=== PATIENT | female | born 1960 | race Caucasian/White ===

== ENCOUNTER 2020-12-17 17:44 | Inpatient (IN) | payer OTHER, MEDICAID, SELFPAY ==
[2020-12-17] VITALS (15 sets, daily range): BP systolic 157–188; BP diastolic 86–113; PULSE 70–85; RESP 13–20; TEMP 36.1–37.1; O2SAT 96–100; BMI 25.9
--- NOTE | 2020-12-17 18:12 | ED_ITS ---
HPI - Female Genitourinary General Chief complaint: Vaginal Bleeding Stated complaint: Needs Transfusion, Sent From Dr Caballero Time Seen by Provider: 12/17/20 17:59 Source: patient Mode of arrival: Ambulatory Limitations: no limitations History of Present Illness HPI Narrative: 60-year-old female daily smoker presents with at the request of Gynecology. She has been having bloating, pelvic pain and episodes of heavy vaginal bleeding for the past few weeks. She has had an ultrasound which demonstrates a large fibroid and was sent to gynecology for referral today. Upon hearing the story she was evaluated and sent to the emergency department for workup presuming the patient to be anemic. She has been a bit fatigued and short of breath and a few weeks ago had a hemoglobin of 7. She does not take any blood thinners. She denies any runny nose, sore throat or cough. She denies any chest pain. MD Complaint: vaginal bleeding Onset (ago): week(s) Location: suprapubic Severity: moderate Quality: Aching and Cramping Duration: constant Relieving factors: none Exacerbating factors: movement Vaginal discharge: dark blood Patient : No Related Data Home Medications Medication Instructions Recorded Confirmed diphenhydramine HCl 25 mg capsule 25 mg PO BID PRN 12/17/20 12/17/20 gabapentin 600 mg tablet 300 mg PO TID tab 12/17/20 12/17/20 ibuprofen 200 mg capsule 200 mg PO Q6H PRN 12/17/20 12/17/20 Allergies Allergy/AdvReac Type Severity Reaction Status Date / Time nalbuphine [From NUBAIN] Allergy Severe CHEST Verified 12/17/20 17:52 TIGHTING/SOB Review of Systems Constitutional Constitutional: Denies chills, Denies fatigue, Denies fever(s), Denies frequent falls, Denies lethargy and Denies weakness Eyes Eyes: Denies change in vision, Denies eye discharge, Denies irritation and Denies loss of vision ENT Ears, Nose, Mouth, and Throat: Denies change in voice, Denies dizziness, Denies neck pain, Denies sore throat and Denies throat swelling Cardiovascular Cardiovascular: Denies chest pain, Denies irregular heart rhythm, Denies lightheadedness, Denies palpitations, Reports dyspnea, Reports dyspnea on exertion and Denies orthopnea Respiratory Respiratory: Denies cough, Reports dyspnea, Reports dyspnea on exertion and Denies wheezing Gastrointestinal Gastrointestinal: Denies abdominal pain, Denies change in bowel habits, Denies diarrhea, Denies nausea and Denies vomiting Genitourinary Genitourinary: Reports abnormal vaginal bleeding Musculoskeletal Musculoskeletal: Denies neck pain and Denies numbness Integumentary/Breasts Skin/Breast: Denies pruritus, Denies erythema, Denies rash and Denies wounds Neurologic Neurologic: Denies behavioral changes, Denies confusion, Denies dizziness, Denies frequent falls, Denies loss of vision, Denies numbness and Denies weakness Psychiatric Psychiatric: Denies anxiety, Denies behavioral changes, Denies confusion, Denies depression, Denies homicidal ideation and Denies suicidal ideation Endocrine Endocrine: Denies fatigue, Denies flushing and Denies palpitations Hematologic/Lymphatic Hematologic/Lymphatic: Denies easy bruising Allergic/Immunologic Allergic/Immunologic: Denies urticaria, Denies throat swelling and Denies wheezing Patient History Medical History Endometrioma Pilonidal cyst Surgical History History of dilatation and curettage History of thyroidectomy, subtotal alcohol intake frequency: 3 or more drinks per day Substance Use Type: does not use Exam Narrative Exam Narrative: GENERAL: [60] year old patient appears stated age. Well- nourished, well-developed patient, in mild distress. HEAD: Atraumatic. Normocephalic. EYES: Pupils equal round and reactive. Extraocular motions intact. No scleral icterus. No injection or drainage. ENT: Nose without bleeding, purulent drainage. Throat without erythema, tonsil lar hypertrophy or exudate. Airway patent. NECK: Trachea midline. Non tender CARDIOVASCULAR: Regular rate and rhythm without murmurs, gallops, or rubs. RESPIRATORY: Clear to auscultation. Breath sounds equal bilaterally. No wheezes, rales, or rhonchi. GASTROINTESTINAL: Abdomen soft, tender in the suprapubic region, nondistended. EXTREMITIES: No edema or joint tenderness. BACK: Nontender without deformity or crepitance. No flank tenderness. NEURO: AOx3. SKIN: No rash or erythema of visible areas Initial Vital Signs Initial Vital Signs: Vital Signs Temperature 98.8 F 12/17/20 17:52 Pulse Rate 85 12/17/20 17:52 Respiratory Rate 15 12/17/20 17:52 Blood Pressure 180/106 H 12/17/20 17:52 Pulse Oximetry 99 12/17/20 17:52 Course Course Course Narrative: Patient seen and evaluated at the bedside by Dr. Caballero, she will meet the patient and take to the OR tomorrow Orders Ordered: ED Orders 12/17/20 18:10 Basic Metabolic Panel Stat Complete Blood Count AUTO DIFF Stat Packed Cells Stat Type and Screen Stat 12/17/20 18:20 COVID19 - ADMIT (DIRECTOR OF CORPORATE REAL ESTATE swab/PCR) Stat Gabapentin (Gabapentin 600 Mg Tablet) 300 mg PO TID RAFAEL Last Admin: 12/17/20 22:57 Dose: 300 mg Documented by: KINSEY Lactated Ringer's (Lactated Ringers) 1,000 mls @ 100 mls/hr IV CONT RAFAEL Last Admin: 12/17/20 22:58 Dose: 100 mls/hr Documented by: KINSEY Naloxone HCl (Naloxone 0.4 Mg/Ml Vial) 0.2 mg IV Q2MIN PRN PRN Reason: Opiate Reversal Zolpidem Tartrate (Zolpidem 5 Mg Tablet) 5 mg PO BEDTIME PRN PRN Reason: Sleep Last Admin: 12/17/20 22:57 Dose: 5 mg Documented by: KINSEY Vital Signs Vital signs: Vital Signs - 8 hr 12/17/20 17:52 12/17/20 18:45 12/17/20 18:46 Temperature 98.8 F Pulse Rate 85 73 74 Respiratory Rate 15 Blood Pressure 180/106 H 170/89 H Pulse Oximetry 99 99 97 MDM - Female Genitourinary Lab Data Result diagrams: 12/17/20 18:10 12/17/20 18:10 Labs: Lab Results 12/17/20 12/17/20 12/17/20 Range/Units 18:10 18:10 18:10 WBC 5.5 (4.5-11.0) X10^3/uL RBC 4.40 (4.0-5.2) X10^6/uL Hgb 9.5 L (12.0-16.0) g/dL Hct 31.5 L (36-46) % MCV 71.7 L (80-100) fL MCH 21.6 L (26-34) PG MCHC 30.1 (30-36) % RDW 33.2 H (11.6-14.8) % Plt Count 541 H (150-400) X10^3/uL Neut % (Auto) 53.6 (50-75) % Lymph % (Auto) 31.0 (25-40) % Blaine % (Auto) 10.3 (3-14) % Eos % (Auto) 3.6 (2-4) % Baso % (Auto) 1.5 (0-2) % Neut # (Auto) 3000 (0551-2920) /uL Lymph # (Auto) 1700 (0838-0939) /uL Blaine # (Auto) 600 (0-900) /uL Eos # (Auto) 200 (0-450) /uL Baso # (Auto) 100 (0-100) /uL RBC Morphology See below Dimorphic RBCs Present Hypochromasia 1+ H Poikilocytosis 1+ H Anisocytosis 3+ H Microcytosis 1+ H Sodium 137 (137-145) mmol/L Potassium 4.0 (3.4-5.1) mmol/L Chloride 105 (98-107) mmol/L Carbon Dioxide 23 (22-32) mmol/L BUN 10 (7-17) mg/dL Creatinine 0.66 (0.52-1.04) mg/dL Estimated GFR > 60.0 (>60) mL/min BUN/Creatinine Ratio 15.2 (6-22) Glucose 175 H (70-100) mg/dL Calcium 9.3 (8.4-10.2) mg/dL SARS-CoV-2 (PCR) (Negative) Blood Type A Positive Antibody Screen Negative Crossmatch See Detail 12/17/20 Range/Units 18:20 WBC (4.5-11.0) X10^3/uL RBC (4.0-5.2) X10^6/uL Hgb (12.0-16.0) g/dL Hct (36-46) % MCV (80-100) fL MCH (26-34) PG MCHC (30-36) % RDW (11.6-14.8) % Plt Count (150-400) X10^3/uL Neut % (Auto) (50-75) % Lymph % (Auto) (25-40) % Blaine % (Auto) (3-14) % Eos % (Auto) (2-4) % Baso % (Auto) (0-2) % Neut # (Auto) (5896-4145) /uL Lymph # (Auto) (1913-3538) /uL Blaine # (Auto) (0-900) /uL Eos # (Auto) (0-450) /uL Baso # (Auto) (0-100) /uL RBC Morphology Dimorphic RBCs Hypochromasia Poikilocytosis Anisocytosis Microcytosis Sodium (137-145) mmol/L Potassium (3.4-5.1) mmol/L Chloride (98-107) mmol/L Carbon Dioxide (22-32) mmol/L BUN (7-17) mg/dL Creatinine (0.52-1.04) mg/dL Estimated GFR (>60) mL/min BUN/Creatinine Ratio (6-22) Glucose (70-100) mg/dL Calcium (8.4-10.2) mg/dL SARS-CoV-2 (PCR) Negative (Negative) Blood Type Antibody Screen Crossmatch Discharge Plan Departure Patient Disposition: Admitted As Inpatient Clinical Impression: Fibroid, Abnormal vaginal bleeding Admit Date/Time: 12/17/20 19:26 Admit Provider: Hilaria Caballero
[2020-12-17 18:24] LABS: Add Manual Diff / Slide Review NO; Basophils Absolute Auto 100 /uL (0-100); Basophils Percent Auto 1.5 % (0-2); Eosinophils Absolute Auto 200 /uL (0-450); Eosinophils Percent Auto 3.6 % (2-4); Hematocrit 31.5 % (36-46); Hemoglobin 9.5 g/dL (12.0-16.0); Lymphocytes Absolute Auto 1700 /uL (1100-4500); Mean Corpuscular HGB Conc 30.1 % (30-36); Mean Corpuscular Hemoglobin 21.6 PG (26-34); Mean Corpuscular Volume 71.7 fL (80-100); Monocytes Absolute Auto 600 /uL (0-900); Monocytes Percent Auto 10.3 % (3-14); Neutrophils Absolute Auto 3000 /uL (1500-7000); Neutrophils Percent Auto 53.6 % (50-75); Platelet Count 541 X10^3/uL (150-400); Red Cell Distribution Width 33.2 % (11.6-14.8); White Blood Cell Count 5.5 X10^3/uL (4.5-11.0)
[2020-12-17 18:32] LABS: BUN Creatinine Ratio 15.2 (6-22); Blood Urea Nitrogen 10 mg/dL (7-17); Calcium 9.3 mg/dL (8.4-10.2); Carbon Dioxide 23 mmol/L (22-32); Chloride 105 mmol/L (98-107); Estimated Glomerular Filt Rate > 60.0 mL/min (>60); Glucose 175 mg/dL (70-100); HEMOLYSIS < 15 (0-50); Sodium 137 mmol/L (137-145)
[2020-12-17 18:47] LABS: Anisocytosis 3+; Dimorphic RBC PRESENT; Hypochromasia 1+; Microcytosis 1+; Poikilocytosis 1+
--- NOTE | 2020-12-17 19:42 | P.HP_ITS ---
History of Present Illness History of Present Illness Date Patient Seen: 12/17/20 Time Patient Seen: 19:42 Chief complaint: Needs Transfusion, Sent From Dr Caballero Narrative: Patient is a 60-year-old 2 para 1011 who presents with an enlarged fibroid uterus, anemia that is symptomatic, and pelvic pain. Patient History Medical History (Updated 12/17/20 @ 19:45 by Hilaria Caballero MD) Endometrioma Pilonidal cyst Surgical History (Updated 12/17/20 @ 19:45 by Hilaria Caballero MD) History of dilatation and curettage History of thyroidectomy, subtotal Family & Social History Safety & Behavioral: Feels Safe in Current Yes Environment Been Physically Hurt or No Threatened By a Person Tobacco & Substance use: Smoking Status Current every day smoker alcohol intake frequency 3 or more drinks per day Substance Use Type does not use Meds Home Medications and Allergies Home Medications Medication Instructions Recorded Confirmed Type diphenhydramine HCl 25 mg capsule 25 mg PO BEDTIME 12/17/20 12/17/20 History gabapentin 600 mg tablet 300 mg PO TID tab 12/17/20 History ibuprofen 200 mg capsule 200 mg PO Q6H PRN 12/17/20 12/17/20 History Allergies Allergy/AdvReac Type Severity Reaction Status Date / Time nalbuphine [From NUBAIN] Allergy Severe CHEST Verified 12/17/20 17:52 TIGHTING/SOB Exam Vital Signs (past 8 hours): - 12/17/20 17:52 12/17/20 18:45 12/17/20 18:46 Temperature 98.8 F Pulse Rate 85 73 74 Respiratory Rate 15 Blood Pressure 180/106 H 170/89 H Pulse Oximetry 99 99 97 Oxygen Delivery Method Room Air Narrative Exam Narrative: Generally: A well-developed, well-nourished female in mild distress Lungs: Clear to auscultation bilaterally Cardiovascular: Tachycardic. Regular rhythm. Abdomen: Well-healed Pfannenstiel scar. Uterus palpable just below the umbilicus. No hepatosplenomegaly. External genitalia are normal Vagina normal Cervix: Normal. A thin prep Pap was obtained. Bimanual exam: A 16 week size multi fibroid uterus. Objective Labs Result Diagrams: 12/17/20 18:10 12/17/20 18:10 Labs: Laboratory Results - last 24 hr 12/17/20 12/17/20 12/17/20 18:10 18:10 18:10 WBC 5.5 RBC 4.40 Hgb 9.5 L Hct 31.5 L MCV 71.7 L MCH 21.6 L MCHC 30.1 RDW 33.2 H Plt Count 541 H Neut % (Auto) 53.6 Lymph % (Auto) 31.0 [place] % (Auto) 10.3 Eos % (Auto) 3.6 Baso % (Auto) 1.5 Neut # (Auto) 3000 Lymph # (Auto) 1700 [place] # (Auto) 600 Eos # (Auto) 200 Baso # (Auto) 100 RBC Morphology See below Dimorphic RBCs Present Hypochromasia 1+ H Poikilocytosis 1+ H Anisocytosis 3+ H Microcytosis 1+ H Sodium 137 Potassium 4.0 Chloride 105 Carbon Dioxide 23 BUN 10 Creatinine 0.66 Estimated GFR > 60.0 BUN/Creatinine Ratio 15.2 Glucose 175 H Calcium 9.3 Crossmatch See Detail Assessment & Plan Assessment & Plan narrative: Assessment: 60-year-old 2 para 1 011 with an enlarged fibroid uterus, menorrhagia, anemia, and pelvic pain Plan: Transfuse 1 unit of packed red blood cells Open, abdominal supracervical hysterectomy with removal of both tubes and the remaining ovaries The risks, benefits, and alternatives to the procedure were explained to the patient. The risks including bleeding, infection, injury to the bowel, bladder, or ureters. She understands these risks and agrees to proceed. A full par Q was held and consent form was signed. COVID-19 COVID-19 status: Result pending Result date/Date tested (Pos, Neg/Pending): 12/17/20 Time Spent With Patient Time with patient: Greater than 35 minutes
[2020-12-17 20:27] LABS: COVID19 - ADMIT (NP swab/PCR) Negative (Negative)
--- NOTE | 2020-12-17 21:27 | PC.NURSE ---
PT transferred to Acute Care with blood infusing at 175ml/hr. No signs or symptoms of reaction.
--- NOTE | 2020-12-17 22:06 | PC.NURSE ---
Patient arrived to unit at 2115, ambulatory. Partway through receiving first unit of blood, v/s stable. No sx of transfusion reaction. Pt educated on signs and symptoms of transfusion reactions, and plan of care (frequent vital sign checks).
[2020-12-17] MEDS: ZOLPIDEM 5 MG TABLET PO (22:57)
[2020-12-17] MEDS: GABAPENTIN 600 MG TABLET 300 MG PO (22:57)
[2020-12-17] MEDS: LACTATED RINGERS 1,000 ML 100 ML IV (22:58)
--- NOTE | 2020-12-17 23:32 | PC.NURSE ---
Tranfusion ended at 2250. No reactions.
[2020-12-18] VITALS (14 sets, daily range): BP systolic 103–185; BP diastolic 55–114; PULSE 66–94; RESP 12–20; TEMP 35.3–36.8; O2SAT 90–98; BMI 25.9
--- NOTE | 2020-12-18 | PATH_ITS ---
[facility] Accession Number: [id number] . 01 Material submitted: . uterus - UTERUS, BILATERAL FALLOPIAN TUBES AND BILATERAL OVARIES . 02 Diagnosis: Uterus, Bilateral Fallopian Tubes and Bilateral Ovaries, Abdominal Open Supracervical Hysterectomy and Bilateral Salpingo-oophorectomy (Weight 761 grams): Basalis endometrium with cystic atrophy; negative for glandular hyperplasia, cytologic atypia, or malignancy. Myometrium with multiple intramural leiomyomas and with one detached leiomyoma (0.3-13.0 cm in greatest dimension); negative for atypia or malignancy. Uterine serosa with multiple adhesions, nonspecific. Attached ovary with features of atrophy and with multiple corpora albicantia; negative for malignancy. Attached fallopian tube with benign paratubal cysts (1-3 mm in greatest dimension) and serosal adhesions, non-specific; negative for atypia or malignancy. 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 Detached fallopian tube with a small benign paratubal cyst (1 mm) and no significant histomorphologic abnormality; negative for atypia or malignancy. [facility] 12/24/2020 1545 Local . 02 Comment: As part of routine water quality control engineer, this case was also reviewed by Drs. Saldana and Claudy, who agree with the interpretation. . Message left with Dr. Caballero's office on 12-24-20 at approximately 3:55 p.m. . 02 Electronically signed: . Tessa Coe MD, Pathologist NPI- [id number] . 01 Gross description: . The specimen is received in formalin, labeled uterus, bilateral fallopian tubes, bilateral ovaries, and consists of a 761 g, diffusely disrupted, superocervically resected uterus measuring 11.0 x 10.0 x 8.0 cm and a detached leiomyoma measuring 13.0 x 10.0 x 9.0 cm. The serosa is castillo-pink with fibrinous adhesions. Sectioning reveals a castillo-pink, hemorrhagic endometrium measuring 0.1 cm in thickness. The myometrium is castillo-pink and trabeculated, measuring 3.0 cm in thickness. There are multiple castillo-white, whorled leiomyomata ranging from 0.3 cm to 13 cm with no areas of hemorrhagic, necrosis, or cystic degeneration. The attached ovary measures 2.0 x 1.5 x 1.0 cm and displays a castillo, cerebriform external surface. Sectioning reveals a castillo ovarian stroma. The attached fallopian tube measures 6.5 cm in length by 1.0 cm in diameter and displays a castillo-pink serosa with fibrinous adhesions. Sectioning reveals a castillo mucosa and a stellate lumen measuring 0.2 cm in diameter. There are multiple paratubal cysts ranging from 0.1 cm to 0.3 cm. The detached ovary measures 2.0 x 1.0 x 1.0 cm and displays a castillo external surface with focal fibrinous adhesions. Sectioning reveals castillo, homogeneous, and focally calcified cut surfaces. The attached fallopian tube measures 2.0 cm in length by 0.7 cm in diameter and displays a castillo serosa with a 0.1 cm paratubal cyst. Sectioning reveals a castillo mucosa and a stellate lumen measuring 0.3 cm in diameter. [employer] sections are submitted. . A1-A4: [employer] uterus. A5-A9: [employer] leiomyomata. A10-A11: Attached ovary, bisected, and entirely submitted. A12: Attached fallopian tube, financial foundations representative cross-sections, and bisected fimbria. A13-A16: Detached ovary, entirely submitted (external surface inked blue). A17: Detached fallopian tube, central cross-sections, and bisected fimbria. ([id number]) /Joanna 12/19/2020 1329 Local . 02 Microscopic: . An immunohistochemical stains are performed. The control stain showed appropriate reactivity. . RESULTS (block A14): . P63: Positive in regions of interest. GATA3: Faintly positive in regions of interest. Inhibin: Negative in regions of interest. WT1: Variably positive in regions of interest. . The neoplastic cells are strongly immunopositive for p63, weakly positive for GATA3, variably positive for WT1, and are immunonegative for inhibin. 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 The tissue controls stained appropriately. . * This test was developed and its performance characteristics determined by [facility]. It has not been cleared or approved by the U.S. Food and Drug Administration. The FDA has determined that such clearance or approval is not necessary. This test is used for clinical purposes. It should not be regarded as investigational or for research. . 02 Pathologist provided ICD-10: D27.9 . 02 CPT . 689475, A56842, [id number] Performed at: 01 [facility] [address] [facility], [place], [place] [id number] MD Gato Ray MD Phone: [phone] Performed at: 02 [facility] [address] [place], [place] [id number] MD Ani Loco MD Phone: [phone]
[2020-12-18 05:44] LABS: Basophils Absolute Auto 100 /uL (0-100); Basophils Percent Auto 1.7 % (0-2); Eosinophils Absolute Auto 300 /uL (0-450); Eosinophils Percent Auto 4.4 % (2-4); Hematocrit 32.5 % (36-46); Hemoglobin 9.9 g/dL (12.0-16.0); Lymphocytes Absolute Auto 2600 /uL (1100-4500); Lymphocytes Percent Auto 43.9 % (25-40); Mean Corpuscular HGB Conc 30.4 % (30-36); Mean Corpuscular Hemoglobin 22.3 PG (26-34); Mean Corpuscular Volume 73.3 fL (80-100); Monocytes Absolute Auto 700 /uL (0-900); Monocytes Percent Auto 11.3 % (3-14); Neutrophils Absolute Auto 2300 /uL (1500-7000); Neutrophils Percent Auto 38.7 % (50-75); Platelet Count 448 X10^3/uL (150-400); Red Blood Cell Count 4.44 X10^6/uL (4.0-5.2); Red Cell Distribution Width 31.5 % (11.6-14.8)
[2020-12-18 05:45] LABS: Add Manual Diff / Slide Review SLIDE REVIEW
[2020-12-18 07:19] LABS: Anisocytosis 3+; Microcytosis 1+
[2020-12-18 07:20] LABS: Hypochromasia 1+
[2020-12-18] MEDS: LACTATED RINGERS 1,000 ML 100 ML IV ×3 (09:09→21:04)
[2020-12-18] MEDS: MORPHINE 2 MG/ML INJ IV (09:40)
--- NOTE | 2020-12-18 12:01 | PC.NURSE ---
Patient transported to surgery via bed accompanied by POSTAL DELIVERY OFFICER.
--- NOTE | 2020-12-18 12:35 | PM.PREOP ---
Pre-operative Note COVID-19 COVID-19 status: Negative Result date/Date tested (Pos, Neg/Pending): 12/17/20 Interval Note History & Physical reviewed/Exam performed by Physician: Yes Changes to H&P: No H&P completed within 30 days and has changed as indicated here:: 12/17/20
[2020-12-18] MEDS: CEFAZOLIN 1 GM VIAL 2 GM IV (13:10)
--- NOTE | 2020-12-18 13:20 | SUR.OPER ---
Supine on padded OR bed, head on pillow, arms secured on padded arm boards at <90 degrees abduction, legs uncrossed, safety belt at thigh, tape over blanket over lower legs.
[2020-12-18] MEDS: SODIUM CHLORIDE 0.9% 30 ML, VASOPRESSIN 20 UNIT INJ (13:44)
--- NOTE | 2020-12-18 15:09 | P.OP_ITS ---
Operative Date/Time/Diagnoses Date of procedure: 12/18/20 Time of procedure: 15:09 Pre-op diagnosis: Sixteen week size fibroid uterus Pelvic pain Postmenopausal bleeding Symptomatic anemia Post-op diagnosis: same Procedure & Clinicians Procedure: Procedures Operation Date: 12/18/20 12:30 Actual Procedures Side Surgeon p ABDOMINAL OPEN SUPRACERVICAL HYSTERECTOMY, REMOVAL OF BOTH TUBES AND REMAINING OVARIES Hilaria Caballero MD Indications: 16 week size fibroid uterus Postmenopausal bleeding Symptomatic anemia Pelvic pain Surgeon: Hilaria Caballero Bead Machine Operator: Ricardo Evans Anesthesia Type: General Operative Notes Findings: 18 week size multi fibroid uterus Bladder to uterine adhesions Bilateral adnexal adhesions Posterior uterine adhesions Normal appendix Normal remnants of ovaries Normal tubes Closure Type: primary Specimen(s): left tube & ovary and right tube & ovary Applied: catheter Estimated blood loss (mL): 200 Blood products transfused: none Procedure in detail: The patient was taken to the operating room where she was placed in the dorsal supine position. After adequate general endotracheal anesthesia was achieved, the patient was prepped and draped in the usual sterile fashion. A time-out was performed. A midline incision was made from just below the umbilicus to the pubic symphysis. This was carried down to the fascia. The fascia was nicked in the midline and the fascia was taken off of the rectus muscle bilaterally. The midline was identified, the peritoneum was grasped between 2 hemostats, and entered sharply with the Metzenbaum scissors. This incision was extended superiorly and inferiorly with good visualization of the bladder. An O'Porter O'Cuello retractor was placed into the incision, and the bowel was packed away with moist lap sponges. The bladder was carefully taken down off of the lower uterine segment sharply with the Metzenbaum scissors. A decision was made to debulk the uterus by removing the largest fibroid. A solution of 20 units of Pitressin in 30 cc of normal saline was prepared. 12 cc of that solution was injected subserosally. An 8 cm incision was made and carried down to the capsule of the fibroid. The fibroid was grasped and removed by using the blunt end a knife handle to scoop the fibroid out. At the base of the fibroid the pedicle was cauterized with the Bovie. The uterus was then grasped with 4 tooth tenaculum. The round ligaments on both sides were clamped transected and suture ligated with 0 Vicryl. They were tagged with hemostats. The infundibulopelvic ligament was identified and doubly clamped, transected, free tied with 0 Vicryl and then suture ligated with 0 Vicryl. This was done with prior visualization of the ureter. The uterine arteries were skeletonized bilaterally, clamped, transected, and suture ligated with 0 Vicryl. The uterus was amputated from the cervix using the Bovie. The cervical stump was grasped with Allis clamps. The cervix was closed with a series of [id number] sutures with 0 Vicryl. Hemostasis was achieved. The pelvis was copiously irrigated with warm normal saline. No bleeding was noted. The retractor was removed from the incision. The lap sponges were removed from the abdomen. The tagged pedicles were cut. The peritoneum was closed using 2 0 Vicryl in a running fashion. The fascia was reapproximated with 0 PDS. The subcutaneous layer was irrigated with warm normal saline. The Bovie was used for hemostasis. Seven simple interrupted sutures were placed in the subcutaneous layer to reapproximate. The skin was closed with 4 0 Biosyn in a subcuticular fashion. Steri-Strips were placed. An Aquacel dressing was placed. Sponge, lap, and instrument counts were correct x2. The patient tolerated the procedure well, and was taken to PACU in stable condition. Complications: none Post-operative Condition: stable Disposition: PACU Plan for aftercare: To acute care after recovery
--- NOTE | 2020-12-18 15:11 | CM.DANOTE ---
Discharge Planning/Care Management DCP: assessment: EMR review only: pt is currently in surgery. Case received, EMR reviewed. Discussed in Team Rounds. Pt is a 60 year old female who admitted last evening to care of OBGYN Dr. Caballero. Payer: [place] [employer] Admission status: in review: per UR RN Pt was transfused and today in taken to surgery with plan for: open abdominal supracervical hysterectomy with removal of tubes and ovaries. She is expected to return back to the acute care floor sometime late this afternoon. Pt [place] [facility] (accessible only by [employer]). DCP team will be following as POC unfolds to assist with any d/c needs that may arise. CM Discharge Assessment Start: 12/18/20 15:09 Freq: Status: Active Protocol: Document 12/18/20 15:09 ITV (Rec: 12/18/20 15:11 ITV [id number]) Discharge Planning Assessment Advance Directives? No History Provided By Medical Record Prior Living Arrangements House Household Members spouse Is patient alert and oriented? Yes
[2020-12-18] MEDS: HYDROMORPHONE 2 MG INJ IV ×4 (15:13→15:29)
[2020-12-18] MEDS: fentaNYL 100 MCG/2 ML INJ IV ×4 (15:13→15:34)
[2020-12-18] MEDS: ACETAMINOPHEN 325 MG TABLET 650 MG PO ×2 (15:30→23:42)
[2020-12-18] MEDS: OXYCODONE IR 5 MG TABLET PO ×3 (15:31→21:00)
--- NOTE | 2020-12-18 15:42 | SUR.PHASEI ---
StatLock applied to left thigh
--- NOTE | 2020-12-18 15:46 | SUR.PHASEI ---
Report called to RN [id number]
[2020-12-18] MEDS: KETOROLAC 30 MG/ML VIAL IV ×2 (16:56→21:08)
[2020-12-18] MEDS: DOCUSATE 250 MG CAPSULE PO (21:00)
[2020-12-18] MEDS: ONDANSETRON 4 MG/2 ML INJ IV (21:03)
[2020-12-19] MEDS: OXYCODONE IR 5 MG TABLET PO ×2 (01:00→21:38)
[2020-12-19] MEDS: KETOROLAC 30 MG/ML VIAL IV ×2 (03:34→10:07)
[2020-12-19 03:54] VITALS: BP 133/76; PULSE 91; RESP 16; TEMP 36.6; O2SAT 95
[2020-12-19 05:52] LABS: Basophils Absolute Auto 0 /uL (0-100); Basophils Percent Auto 0.3 % (0-2); Eosinophils Absolute Auto 0 /uL (0-450); Hematocrit 28.6 % (36-46); Hemoglobin 8.7 g/dL (12.0-16.0); Lymphocytes Absolute Auto 1000 /uL (1100-4500); Lymphocytes Percent Auto 9.1 % (25-40); Mean Corpuscular HGB Conc 30.4 % (30-36); Mean Corpuscular Hemoglobin 22.4 PG (26-34); Mean Corpuscular Volume 73.6 fL (80-100); Monocytes Absolute Auto 900 /uL (0-900); Neutrophils Absolute Auto 9300 /uL (1500-7000); Neutrophils Percent Auto 82.6 % (50-75); Platelet Count 387 X10^3/uL (150-400); Red Blood Cell Count 3.89 X10^6/uL (4.0-5.2); Red Cell Distribution Width 30.7 % (11.6-14.8); White Blood Cell Count 11.3 X10^3/uL (4.5-11.0)
[2020-12-19 05:58] LABS: Add Manual Diff / Slide Review SLIDE REVIEW
[2020-12-19 05:59] LABS: BUN Creatinine Ratio 13.5 (6-22); Blood Urea Nitrogen 7 mg/dL (7-17); Carbon Dioxide 25 mmol/L (22-32); Chloride 98 mmol/L (98-107); Estimated Glomerular Filt Rate > 60.0 mL/min (>60); Glucose 170 mg/dL (70-100); HEMOLYSIS < 15 (0-50); Potassium 4.2 mmol/L (3.4-5.1); Sodium 131 mmol/L (137-145)
[2020-12-19 07:50] LABS: Anisocytosis 3+; Hypochromasia 1+; Microcytosis 1+; Poikilocytosis 1+
[2020-12-19 08:00] VITALS: BP 143/84; PULSE 88; RESP 16; TEMP 36.9; O2SAT 93
[2020-12-19] MEDS: DOCUSATE 250 MG CAPSULE PO ×2 (08:25→21:34)
[2020-12-19] MEDS: ACETAMINOPHEN 325 MG TABLET 650 MG PO ×3 (08:33→21:36)
[2020-12-19] MEDS: ONDANSETRON 4 MG/2 ML INJ IV (10:35)
--- NOTE | 2020-12-19 10:46 | P.PN_ITS ---
Subjective Subjective Date Patient Seen: 12/19/20 Time Patient Seen: 10:46 Interval history: Patient is a 60-year-old postop day # 1 status post open abdominal supracervical hysterectomy with bilateral salpingo oophorectomy due to an 18 week size multi fibroid uterus. Her pain is well controlled. She did have some nausea and a small amount of vomiting of water this morning. Her catheter is in place. She has not been out of bed yet. Exam Vital Signs (past 8 hours): - 12/19/20 03:54 12/19/20 08:00 Temperature 97.8 F 98.5 F Pulse Rate 91 H 88 Respiratory Rate 16 16 Blood Pressure 133/76 143/84 H Pulse Oximetry 95 93 Oxygen Delivery Method Room Air Oxygen Flow Rate 0 Narrative Exam Narrative: Generally: Patient is sitting up in bed, no acute distress Lungs: Clear to auscultation bilaterally Cardiovascular: Regular rate and rhythm Abdomen: Soft and flat. Bowel sounds heard but decreased. Incision: Clean dry and intact with Aquacel dressing. Small area of old blood on the underside of the Aquacel dressing. Extremities: SCDs in place. Negative Homans, no edema. Objective Labs Result Diagrams: 12/19/20 05:10 12/19/20 05:10 Labs: Laboratory Results - last 24 hr 12/19/20 12/19/20 05:10 05:10 WBC 11.3 H D RBC 3.89 L Hgb 8.7 L Hct 28.6 L MCV 73.6 L MCH 22.4 L MCHC 30.4 RDW 30.7 H Plt Count 387 Neut % (Auto) 82.6 H D Lymph % (Auto) 9.1 L D [place] % (Auto) 8.0 Eos % (Auto) 0.0 L Baso % (Auto) 0.3 Neut # (Auto) 9300 H Lymph # (Auto) 1000 L [place] # (Auto) 900 Eos # (Auto) 0 Baso # (Auto) 0 RBC Morphology See below Hypochromasia 1+ H Poikilocytosis 1+ H Anisocytosis 3+ H Microcytosis 1+ H Sodium 131 L Potassium 4.2 Chloride 98 Carbon Dioxide 25 BUN 7 Creatinine 0.52 Estimated GFR > 60.0 BUN/Creatinine Ratio 13.5 Glucose 170 H Calcium 9.0 PFSH Medical History Endometrioma Pilonidal cyst Surgical History History of dilatation and curettage History of thyroidectomy, subtotal Social History household members: spouse Smoking Status: Current every day smoker Assessment & Plan Post-op Postoperative Procedures: Procedures Operation Date: 12/18/20 12:30 Actual Procedures Side Surgeon p ABDOMINAL OPEN SUPRACERVICAL HYSTERECTOMY, REMOVAL OF BOTH TUBES AND REMAINING OVARIES Hilaria Caballero MD Postoperative day: 1 Postoperative status: other (Some nausea and vomiting) Postoperative plan: see orders Postoperative plan narrative: Out of bed to chair Change IV fluids to normal saline Discontinue Bennett catheter Slow advancement of diet Time Spent With Patient Time with patient: 15-24 minutes Quality VTE Deep Vein Thrombosis/Pulmonary Embolism Present on Admission: No
[2020-12-19] MEDS: SODIUM CHLORIDE 0.9% 1,000 ML 100 ML IV ×2 (11:24→21:34)
[2020-12-19 12:00] VITALS: BP 164/96; PULSE 85; RESP 16; TEMP 36.7; O2SAT 95
[2020-12-19 15:25] VITALS: BP 151/100; PULSE 83; RESP 16; TEMP 36.8; O2SAT 97
[2020-12-19] MEDS: IBUPROFEN 600 MG TABLET PO (18:07)
[2020-12-19 19:45] VITALS: BP 154/88; PULSE 80; RESP 17; TEMP 36.6; O2SAT 98
[2020-12-19 23:00] VITALS: BP 162/97; PULSE 80; RESP 16; TEMP 37.1
[2020-12-20] MEDS: IBUPROFEN 600 MG TABLET PO ×3 (00:04→12:12)
[2020-12-20] MEDS: OXYCODONE IR 5 MG TABLET PO (01:22)
[2020-12-20 05:04] VITALS: BP 151/84; PULSE 87; RESP 16; TEMP 36.7; O2SAT 96
[2020-12-20 06:00] LABS: BUN Creatinine Ratio 8.3 (6-22); Blood Urea Nitrogen 4 mg/dL (7-17); Calcium 8.7 mg/dL (8.4-10.2); Carbon Dioxide 24 mmol/L (22-32); Chloride 105 mmol/L (98-107); Estimated Glomerular Filt Rate > 60.0 mL/min (>60); Glucose 153 mg/dL (70-100); HEMOLYSIS < 15 (0-50); Potassium 3.3 mmol/L (3.4-5.1); Sodium 136 mmol/L (137-145)
[2020-12-20] MEDS: ONDANSETRON 4 MG/2 ML INJ IV ×2 (06:34→12:12)
--- NOTE | 2020-12-20 06:50 | PC.NURSE ---
call box wirer MD notified via answering service to report low potassium @ 3.3, awaiting call back. Will also report pt. having nausea & vomiting.
--- NOTE | 2020-12-20 06:56 | PC.NURSE ---
Dr. Bunn called back suggested to call Dr. Caballero. Dr. Farmer button machine operator for Dr. Caballero called back reported potassium level of 3.3, no new order received she stated Dr. Caballero will address it when she see patient this morning. Will report to day RN.
[2020-12-20 07:30] VITALS: BP 158/90; PULSE 87; RESP 18; TEMP 36.3; O2SAT 98
[2020-12-20] MEDS: SODIUM CHLORIDE 0.9% 1,000 ML 100 ML IV (07:53)
[2020-12-20] MEDS: DOCUSATE 250 MG CAPSULE PO (09:54)
--- NOTE | 2020-12-20 10:24 | CM.DPC ---
DCP Cont: Patient is to be discharged home today. She resides in [place]. She resides with her life partner, Arturo Moser. P: Patient should be discharging home today with no needs. Lina Bernal RN/Shop Coordinator
[2020-12-20] MEDS: ACETAMINOPHEN 325 MG TABLET 650 MG PO (12:12)
--- NOTE | 2020-12-20 12:55 | PC.NURSE ---
Discharge instructions and home care handouts reviewed with patient and her significant other. They state understanding and have no further questions or concerns at this time. Aquacel remains in place. Medicated per MD recommendation and patient request prior to discharge/travel home. Patient to follow up via teleheath. escorted out via wheelchair with all belongings.
--- NOTE | 2020-12-20 16:36 | P.DS_ITS ---
History of Present Illness History of Present Illness Date Patient Seen: 12/20/20 Time Patient Seen: 09:25 Chief complaint: Needs Transfusion, Sent From Dr Caballero Narrative: Patient is a 60-year-old 2 para 1011 who presents with an enlarged fibroid uterus, anemia that is symptomatic, and pelvic pain. Patient underwent an abdominal supracervical hysterectomy with bilateral salpingo-oophorectomy on December 18, 2020 without complication. She was found to have an 18 week size multi fibroid uterus with bilateral adnexal adhesions. Discharge Providers Provider Date of admission: 12/17/20 19:26 Discharge Date: 12/20/20 Primary care physician: Dane Rouse MD Discharge provider: Hilaria Caballero MD Summary Hospital Course Discharge Diagnosis: Eighteen week size multi fibroid uterus Symptomatic acute blood loss anemia Status post transfusion of 1 unit of packed red blood cells Bilateral adnexal adhesions Bladder to uterine adhesions Pelvic pain Hospital Course: Patient is a 60-year-old 2 para 1 who presented to the office on December 17, 2020 for a consultation regarding postmenopausal bleeding and an enlarged fibroid uterus. She was found to be acutely short of breath and anemic. She was sent to the emergency department where she received 1 unit of packed red blood cells and then was admitted overnight. She underwent an abdominal supracervical hysterectomy with bilateral salpingo oophorectomy and lysis of adhesions on December 18, 2020. She was found to have an 18 week size multi fibroid uterus with bilateral adnexal adhesions and bladder to uterine adhesions. She underwent this procedure without complication. On postop day # 1 her Bennett catheter was removed and she was able to void without the catheter. She did have some nausea and vomiting related to just drinking fluids. She tolerated a diet on postop day # 1. She was out of bed to chair. On postop day # 2 she was ambulating without assistance, tolerating a diet, passing flatus. Exam Vital Signs (past 8 hours): Oxygen Delivery Method Room Air Oxygen Flow Rate 0 Narrative Exam Narrative: Generally: Patient is sitting up in bed, no acute distress Lungs: Clear to auscultation bilaterally Cardiovascular: Regular rate and rhythm Abdomen: Soft and flat. Good bowel sounds in all 4 quadrants. Incision: Dry and intact with an Aquacel dressing. There were 2 small areas of dried blood underneath. Extremities: Negative Homans, no edema. Objective Labs Result Diagrams: 12/19/20 05:10 12/20/20 04:55 Labs: Laboratory Results - last 24 hr 12/20/20 04:55 Sodium 136 L Potassium 3.3 L Chloride 105 Carbon Dioxide 24 BUN 4 L Creatinine 0.48 L Estimated GFR > 60.0 BUN/Creatinine Ratio 8.3 Glucose 153 H Calcium 8.7 PFSH Medical History Endometrioma Pilonidal cyst Surgical History History of dilatation and curettage History of thyroidectomy, subtotal Social History household members: spouse Smoking Status: Current every day smoker Discharge Assessment & Plan Assessment and Plan Assessment: 60-year-old 2 para 1 postop day # 2 status post abdominal supracervical hysterectomy, bilateral salpingo-oophorectomy, and lysis of adhesions Patient doing very well. Plan of Treatment: Discharge to home Follow-up in 1 week by [facility] for Aquacel dressing removal Patient to call with fever, chills, redness or drainage around the incision, or bleeding vaginally more than spotting Discharge Plan Discharge Plan Patient Disposition: Home Provider Discharge Comment: Call with fever, chills, redness or drainage around the incision, or bleeding vaginally more than spotting to light Tylenol 650 mg every 6 hours as needed Ibuprofen 600 mg every 6 hours as needed Stool softener is needed Discharge orders & Medications Prescriptions: New oxycodone 5 mg tablet 5 mg PO Q4H PRN (Reason: pain) Qty: 20 RF: 0 ondansetron 4 mg tablet,disintegrating 4 mg PO Q6H PRN (Reason: nausea and vomiting) Qty: 10 RF: 0 Continued gabapentin [Neurontin] 600 mg tablet 300 mg PO TID RF: 0 diphenhydramine HCl [Benadryl] 25 mg capsule 25 mg PO BID PRN (Reason: Allergy Symptoms) RF: 0 ibuprofen 200 mg capsule 200 mg PO Q6H PRN (Reason: Pain (Scale Score 1-3)) RF: 0 Follow up/Referrals: Hilaria Caballero MD [Physician] - 1 Week (My office will call to set up [facility]) Diet/Activity/Treatments Diet: Regular Activity: No heavy lifting Skin/Wound/Dressing Care Report to your healthcare provider any signs of infection, such as:: chills, fever, increased pain, unusual drainage and unusual redness Dressing: Do not remove Visit Report/Discharge Packet Instructions: DI for Hysterectomy, DI for Prescription Opioid Use Stand Alone Forms: Surgery Discharge Discharge Data Primary Care Provider: Dane Rouse VTE Deep Vein Thrombosis/Pulmonary Embolism Present on Admission: No
== END 2020-12-20 12:57 | disposition home or self-care (01) | DRG 519 ==
LOC: ED 18:24 → AC 19:27
PROVIDERS: Admitting Provider Obstetrics & Gynecology; Emergency Provider Emergency Medicine; Family Provider Family Medicine Geriatric Medicine; PCP Family Medicine; Referring Provider Emergency Medicine; Visit Provider Obstetrics & Gynecology
PROC: 0UT90ZZ Resection of Uterus, Open Approach (ICD-10-PCS; CPT 58150; principal; 2020-12-18 12:30)
DX: D25.9 Leiomyoma of uterus, unspecified (principal); D62 Acute posthemorrhagic anemia; N95.0 Postmenopausal bleeding; F17.200 Nicotine dependence, unspecified, uncomplicated; R10.2 Pelvic and perineal pain; Z20.822 Contact with and (suspected) exposure to COVID-19; N73.6 Female pelvic peritoneal adhesions (postinfective)
CPT/HCPCS: 36415; 36430; 58180; 80048; 85025; 86850; 86900; 86901; 87635; 99284; C9803; P9016; J0360; J0690; J1100; J1170; J1885; J2270; J2405; J2704; J3010